=== PATIENT | female | born 1960 | race Caucasian/White ===

== ENCOUNTER 2018-01-06 20:45 | Outpatient (CLI) | payer MEDICARE | END 2018-01-06 20:46 | disposition critical access hospital (66) | LOC: EMS 20:45 | PROVIDERS: ATTEND Surgery | DX: R41.0 Disorientation, unspecified (principal); R56.9 Unspecified convulsions | CPT/HCPCS: A0425; A0427 ==

== ENCOUNTER 2018-01-06 21:15 | Observation (INO) | payer MEDICARE ==
--- NOTE | 2018-01-06 21:54 | CT Report ---
EXAM: CT HEAD EXAM DATE: 01/06/2018 09:46 PM. CLINICAL HISTORY: Syncope, seizure. COMPARISON: None. TECHNIQUE: Multiaxial CT images were obtained from the foramen magnum to the vertex. Reformats: Coron al. IV contrast: None. In accordance with CT protocol optimization, one or more of the following dose reduction techniques w ere utilized for this exam: automated exposure control, adjustment of mA and/or KV based on patient s ize, or use of iterative reconstructive technique. FINDINGS: Parenchyma: No intraparenchymal hemorrhage. No evidence of mass, midline shift, or CT findings of inf arction. Reinoso-white differentiation is distinct. Extraaxial Spaces: Normal for age. No subdural or epidural collections identified. Ventricles: Normal in size and position. Sinuses and Orbits: Imaged paranasal sinuses, orbits, and mastoids show no significant abnormality. Bones: No evidence of fracture or calvarial defect. Other: No hyperdense MCA. IMPRESSION: Normal head CT. [facility] The call report notification system was initiated by Dr. Lonnie Gutierrez at 21:51 hrs on 01/06/18. The above findings were discussed with Lonnie Tabares by Dr. Lonnie Gutierrez at 21:53 hrs on 01/06/18 . Referring Provider Line: [phone] SITE ID: [id number]
[2018-01-06 22:11] LABS: BASOPHILS % (AUTO) 0.8 %; EOSINOPHILS # (AUTO) 0.1 10^3/uL (0.0-0.7); EOSINOPHILS % (AUTO) 1.1 %; HGB - HEMOGLOBIN 10.7 g/dL (12.0-16.0); LYMPHOCYTES # (AUTO) 1.3 10^3/uL (1.5-3.5); LYMPHOCYTES % (AUTO) 24.4 %; MEAN CORPUSCULAR HEMOGLOBIN 34.7 pg (27.0-31.0); MEAN PLATELET VOLUME 7.3 fL (7.9-10.8); MONOCYTES # (AUTO) 0.4 10^3/uL (0.0-1.0); MONOCYTES % (AUTO) 7.9 %; NEUTROPHILS # (AUTO) 3.4 10^3/uL (1.5-6.6); NEUTROPHILS % (AUTO) 65.8 %; PLT - PLATELET COUNT 161 10^3/uL (130-450); RED BLOOD COUNT 3.08 10^6/uL (4.20-5.40); RED CELL DISTRIBUTION WIDTH 14.1 % (12.0-15.0); WHITE BLOOD COUNT 5.2 x10^3/uL (4.8-10.8)
[2018-01-06 22:16] LABS: INR 1.2 (0.8-1.2); PT - PROTHROMBIN TIME 13.6 secs (9.9-12.6)
[2018-01-06 22:36] LABS: ALBUMIN/GLOBULIN RATIO 1.3 (1.0-2.2); ALKALINE PHOSPHATASE 41 IU/L (42-121); ALT ALANINE AMINOTRANSFERASE 26 IU/L (10-60); AST ASPARTATE AMINOTRANSFERASE 44 IU/L (10-42); BILIRUBIN,TOTAL 1.6 mg/dL (0.2-1.0); BUN - BLOOD UREA NITROGEN 34 mg/dL (6-20); CALCIUM 7.7 mg/dL (8.5-10.3); CARBON DIOXIDE - CO2 25 mmol/L (21-32); CHLORIDE 94 mmol/L (101-111); CREATININE 0.8 mg/dL (0.4-1.0); GFR - MDRD 74 (>89); GLUCOSE 144 mg/dL (70-100); LIPASE 28 U/L (22-51); PHOSPHORUS 4.4 mg/dL (2.5-4.6); SODIUM 135 mmol/L (135-145)
[2018-01-06] MEDS ORDERED: MAGNESIUM SULFATE 2 GRAM 2 GM/50 ML BAG IV ONE ×2 (22:37→22:56)
[2018-01-06] MEDS ORDERED: POTASSIUM BICARB 25 MEQ TABLET PO STA (22:37)
[2018-01-06] MEDS ORDERED: POTASSIUM CHLOR 10 MEQ/100 ML 10 MEQ/100 ML BAG IV ONE (22:37)
[2018-01-06 22:38] LABS: MAGNESIUM 0.8 mg/dL (1.7-2.8)
--- NOTE | 2018-01-06 22:44 | ED Physician Documentation ---
PD HPI SEIZURE - Stated complaint Stated Complaint: AMS, SEIZURE - Chief complaint Chief Complaint: Neuro - History obtained from History obtained from: Patient, EMS - History of Present Illness Timing - onset: Today Witnessed: Witnessed Number of seizures: Multiple Description of seizure activity: Generalized Injury during seizure: None Contributing factors: EtOH withdrawal Similar symptoms before: Has not had sx before Recently seen: Not recently seen - Additional information Additional information: Patient is a 57 year old female with a history of breast cancer and etoh abuse who is presenting to the emergency department for seizure. According to ems patient called out to her because she wasn't feeling well. Patient proceeded to have a seizure witnessed by the who then called ems. While ems was bringing the patient to the emergency department patient had another seizure that was treated with diazapam. Upon initial evaluation in the emergency department patient was awake, alert and in no distress. Review of Systems Constitutional: denies: Fever, Chills Throat: denies: Dental pain / toothache, Oral lesions / sores Cardiac: denies: Chest pain / pressure GI: denies: Nausea, Vomiting Skin: denies: Rash, Lesions Musculoskeletal: denies: Neck pain Neurologic: reports: Seizure. denies: Generalized weakness, Headache Immunocompromised: denies: Immunocompromised PD PAST MEDICAL HISTORY - Past Medical History Past Medical History: Yes Cardiovascular: None Respiratory: None Neuro: None Endocrine/Autoimmune: None GI: None UPPER MARKER: Breast cancer : None HEENT: None Psych: None Musculoskeletal: None Derm: None - Past Surgical History Past Surgical History: Yes /UPPER MARKER: Hysterectomy, Other - Present Medications Home Medications: Ambulatory Orders Medication Instructions Recorded Confirmed Ibuprofen [Advil] 200 mg PO PRN PRN 10/11/13 10/11/13 - Allergies Allergies/Adverse Reactions: Allergies Allergy/AdvReac Type Severity Reaction Status Date / Time cephalexin monohydrate * Allergy Rash Verified 01/06/18 22:47 [From Keflex] - Social History Does the pt smoke?: Yes Smoking Status: Current every day smoker Does the pt drink ETOH?: Yes Does the pt have substance abuse?: No - Immunizations Immunizations are current?: Yes - POLST Patient has POLST: No PD ED PE NORMAL - Vitals Vital signs reviewed: Yes - General General: Alert and oriented X 3, No acute distress - HEENT HEENT: Atraumatic, PERRL - Neck Neck: Supple, no meningeal sign - Cardiac Cardiac: RRR - Respiratory Respiratory: No respiratory distress - Abdomen Abdomen: Soft - Derm Derm: Normal color - Extremities Extremities: No deformity - Neuro Neuro: Alert and oriented X 3, 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, No motor deficit, No sensory deficit, Normal speech Eye Opening: Spontaneous Motor: Obeys Commands Verbal: Oriented GCS Score: 15 Results - Vitals Vitals: Vital Signs - 24 hr 01/06/18 01/06/18 21:20 22:14 Temperature 36.9 C Heart Rate 106 H 88 Respiratory 20 16 Rate Blood Pressure 165/116 H 132/82 H O2 Saturation 95 98 Oxygen O2 Source Room air - EKG (time done) 2144 Rate: Rate (enter#) (92) Rhythm: NSR [place]: Normal Intervals: Prolonged QT QRS: Normal Ischemia: Q waves Compare to prior EKG: Old EKG unavailable - Labs Labs: Laboratory Tests 01/06/18 01/06/18 01/06/18 21:56 21:56 21:56 WBC 5.2 RBC 3.08 L Hgb 10.7 L Hct 30.4 L MCV 99.0 MCH 34.7 H MCHC 35.0 RDW 14.1 Plt Count 161 MPV 7.3 L Neut # 3.4 Lymph # 1.3 L [place] # 0.4 Eos # 0.1 Baso # 0.0 Absolute Nucleated RBC 0.00 Nucleated RBC % 0.0 PT 13.6 H INR 1.2 APTT 25.6 Sodium 135 Potassium 2.2 L* Chloride 94 L Carbon Dioxide 25 Anion Gap 16.0 H BUN 34 H Creatinine 0.8 Estimated GFR (MDRD) 74 L Glucose 144 H Calcium 7.7 L Phosphorus 4.4 Magnesium 0.8 L* Total Bilirubin 1.6 H AST 44 H ALT 26 Alkaline Phosphatase 41 L Troponin I Total Protein 7.0 Albumin 4.0 Globulin 3.0 Albumin/Globulin Ratio 1.3 Lipase 28 Ethyl Alcohol < 5.0 01/06/18 21:56 WBC RBC Hgb Hct MCV MCH MCHC RDW Plt Count MPV Neut # Lymph # [place] # Eos # Baso # Absolute Nucleated RBC Nucleated RBC % PT INR APTT Sodium Potassium Chloride Carbon Dioxide Anion Gap BUN Creatinine Estimated GFR (MDRD) Glucose Calcium Phosphorus Magnesium Total Bilirubin AST ALT Alkaline Phosphatase Troponin I 0.05 Total Protein Albumin Globulin Albumin/Globulin Ratio Lipase Ethyl Alcohol - Rads (name of study) ct head Radiology: Final report received (normal) PD MEDICAL DECISION MAKING - ED course Complexity details: reviewed old records, reviewed results, re-evaluated patient , considered differential, d/w patient ED course: patient was seen and examined at bedside. IV access was gained and labs were drawn. patient was sent for imaging as the patient was called in as possible stroke but the patient seemed to be more of withdrawal seizures. ekg was performed and was normal sinus but prolonged qt. Patient was awake, alert and oriented and denied any complaints. Patient had no focal neurological deficits. When patient's labs came back patient was found to have hypokalemia and low magnesium. both magnesium and potassium were ordered. Hospitalist was contacted and the case was discussed with him. Patient was placed in observation for further evaluation and care. Departure - Departure Disposition: ED Place in Observation Clinical Impression: Seizure, Hypokalemia Condition: Stable Discharge Date/Time: 01/07/18 00:10
[2018-01-06] MEDS ORDERED: ACETAMINOPHEN 325 MG TABLET PO PRN (22:56)
[2018-01-06] MEDS ORDERED: POTASSIUM CHLORIDE 20 MEQ TABLET PO ONE (22:56)
[2018-01-06] MEDS ORDERED: PROMETHAZINE 25 MG/1 ML VIAL IM PRN (22:56)
[2018-01-06] MEDS ORDERED: LORazepam 0.5 MG TABLET PO PRN (22:56)
[2018-01-06] MEDS ORDERED: ONDANSETRON 4 MG/2 ML VIAL IVP PRN (22:56)
[2018-01-06] MEDS ORDERED: PROCHLORPERAZINE 10 MG/2 ML VIAL IVP PRN (22:56)
[2018-01-06] MEDS ORDERED: IBUPROFEN 400 MG TABLET PO PRN (22:56)
[2018-01-06] MEDS ORDERED: SODIUM CHLORIDE FLUSH 0.9% 10 ML SYRINGE IVP PRN (22:56)
[2018-01-06] MEDS ORDERED: ZOLPIDEM 5 MG TABLET PO PRN (22:56)
[2018-01-06] MEDS ORDERED: oxyCODONE 5 MG TABLET PO PRN (22:56)
--- NOTE | 2018-01-06 23:07 | HISTORY & PHYSICAL EXAMINATION ---
Chief Complaint - Chief Complaint Chief Complaint: Seizures History of Present Illness - Admitted From Admitted From:: Emergency department - History Obtained From Records Reviewed: Yes History obtained from: Patient Exam Limitations: None - History of Present Illness HPI Comment/Other: Patient is a 57-year-old female with a past medical history significant for stage III breast cancer status post meniscectomy and lymph node resection along with adjuvant chemotherapy, chest wall radiation and tamoxifen therapy, hypertension, asthma and alcohol abuse who presents to the emergency department with seizures. The patient states the last thing she remembers is walking her dog this morning she does not recall any of the events of the day nor does she remember if her boyfriend was home with her at any point during the day. She states the only thing she remembers is waking up in the emergency department and she states that since she is woken up she feels fatigued and tired but otherwise does not feel anything abnormal. Unfortunately the patient does not recall any of the events of the day and therefore is not able to provide any history of what happened. The history of the events is provided from the medical records and EMS report. Per EMS the patient herself called 911 after she had noticed that she had a sudden onset of slurred speech and was not making sense. In route to the hospital the patient had 2 witnessed seizures lasting about 30 seconds each in the ambulance. She received 5 mg of Valium with which the seizures aborted. The patient stated she had no history of seizures and per report the patient had right upward gaze when she was having the seizure activity. According to the patient she has not had a alcoholic drink for 3 days now. She denies having had any previous episodes of alcohol withdrawal however she does state that in 2009 she was hospitalized because she states she drank too much and felt funny so decided to come to the hospital. She states that she was admitted to the hospital for several days at that time. The patient denies being a heavy drinker but does state that she does tend to binge drink. She states that she will have maybe a couple of margaritas or maybe a couple of bloody Lucia's or a few drinks with her girlfriends or a few drinks at home. She could not substantiate exactly how much she drinks and how often she drinks but stated she goes long periods of time without needing to drink. The patient also states that she eats very little. She states that she just eats chicken soup at the most once a day. She states that she does make sure to have Ensure for breakfast. The patient denies feeling abnormal at all over the last couple of days. She denies any headaches, focal neurologic deficits, chest pain, urinary urgency, urinary frequency or dysuria. The patient denies having had any fevers or chills. She denies having a stiff neck. The patient denies any recent sick contacts. Patient denies any blurred vision, runny nose, sore throat, nasal congestion, difficulty swallowing, shortness of air, orthopnea, cough, PND, increased lower extremity swelling, abdominal pain, nausea, vomiting, diarrhea, constipation, joint pain, muscle aches, back pain, neck stiffness, skin rashes, hair loss, recent unintentional weight loss or any changes in her appetite. On presentation to the emergency department the patient was afebrile, initially she was tachycardic and hypertensive but the patient's vital signs stabilized during her stay in the emergency department. The patient was fully alert and awake but could not recall the events of the day. She was conversing well and had no focal neurologic deficits. The patient's lab work was significant for a hemoglobin of 10.7, potassium of 2.2, magnesium of 0.8, glucose of 144 and elevated LFTs. The patient's urinalysis was negative and her U tox was positive for opiates and her blood alcohol level was negative. The patient did undergo a CT scan of her head which was normal. Given the patient's severe electrolyte derangements, her history of drinking alcohol and her lack of any infection or previous history of epilepsy the patient was thought most likely to have had an alcohol withdrawal seizure. The patient was placed in observation for electrolyte replacement as she had critically low values of potassium and magnesium. She will also get IV fluids, thiamine, multivitamin and folic acid. History - Past Medical History Cardiovascular: reports: Hypertension Respiratory: reports: Asthma Neuro: reports: None Endocrine/Autoimmune: reports: None GI: reports: None E MARKETING SPECIALIST: reports: Breast cancer (Stage III right breast cancer diagnosed in 02/07. ER/UT positive, HER-2 negative. Status post mastectomy and lymph node dissection. Adjuvant chemotherapy with dose dense ACT. Chest wall radiation therapy and endocrine therapy 6.5 years) : reports: None HEENT: reports: None Psych: reports: None Musculoskeletal: reports: None Derm: reports: None MRSA Hx?: No - Past Surgical History /E MARKETING SPECIALIST: reports: Hysterectomy, Other - Family & Social History Family History: Mother: , Alzheimer's Disease, Father: , CAD ( Paternal grandmother and grandfather both had coronary disease), Other family: CAD Living arrangement: At home Living Situation: With spouse/s.o. Social History Notes: The patient lives in [place], [place] with her boyfriend. She is originally from [place], [place]. She moved to [facility] 9 years ago. 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 The patient has never been and has no children. She does drink alcohol but states she goes days without alcohol and has never had alcohol withdrawal. She states that her last drink was 3 days ago. She states that her drink of choice is vodka. She states that even when she binges she only has a few cocktails during the day or the evening. She could not really quantify how often or how much she truly drinks. She smokes half a pack a day and has been doing so since the age of 16. She denies any illicit drug use. - Substance History Use: Uses substance without health or social issues: Tobacco Dependence: Experiences withdrawal or developed tolerances: Alcohol - POLST Patient has POLST: No POLST Status: Full Code Meds/Allgy - Home Medications Home Medications: Ambulatory Orders Medication Instructions Recorded Confirmed Ibuprofen [Advil] 200 mg PO PRN PRN 10/11/13 10/11/13 - Allergies Allergies/Adverse Reactions: Allergies Allergy/AdvReac Type Severity Reaction Status Date / Time cephalexin monohydrate * Allergy Rash Verified 01/06/18 22:47 [From Keflex] Review of Systems - Other Findings Other Findings: A comprehensive review of systems was performed the pertinent positives and negatives are stated above in the HPI and the remainder of the review of systems is negative. Exam - Vital Signs Reviewed Vital Signs: Yes Vital Signs: Vital Signs x48h Temp Pulse Resp BP Pulse Ox 01/06/18 22:58 91 18 124/83 H 99 01/06/18 22:14 88 16 132/82 H 98 01/06/18 21:20 36.9 C 106 H 20 165/116 H 95 - Physical Exam General Appearance: positive: No acute distress, Alert Eyes Bilateral: positive: Normal inspection, PERRL, EOMI, No lid inflammation, Conjunctivae nml, No scleral icterus ENT: positive: ENT inspection nml, Pharynx nml, Dry mucous membranes. negative : Purulent nasal drainage, Pharyngeal erythema, Oral lesions Neck: positive: Nml inspection, Thyroid nml, No JVD, Trachea midline. negative : Thyromegaly, Lymphadenopathy (R), Lymphadenopathy (L), Stiff neck, Carotid bruit, Tracheal deviation Respiratory: positive: Chest non-tender, No respiratory distress, Breath sounds nml. negative: Wheezes, Rales, Rhonchi Cardiovascular: positive: Regular rate & rhythm, No murmur, No gallop Peripheral Pulses: positive: 2+ Abdomen: positive: Non-tender, No organomegaly, Nml bowel sounds, No distention. negative: Guarding, Rebound, Hepatomegaly Back: positive: Nml inspection. negative: CVA tenderness (R), CVA tenderness (L ) Skin: positive: Color nml, No rash, Warm. negative: Cyanosis, Diaphoresis, Pallor Extremities: positive: Non-tender, Full ROM, Nml appearance, No pedal edema Neurologic/Psychiatric: positive: Oriented x3, CN's nml (2-12), Motor nml, Sensation nml, Mood/affect nml Conclusion/Plan - Problem List (1) Seizure Conclusion/Plan: Patient had 2 witnessed seizures by EMS in route to the hospital. Prior to that it is unclear if she had seizures at home but apparently called EMS because she was having difficulty with her speech. The patient does not recall anything that happened at home and no one was home to witness what had happened. It is possible that the patient also had a seizure at home and was in a postictal state when she called 911. The patient's CT head on arrival was negative. She had no focal neurologic deficits. She had no further seizures in the emergency department. She did not appear to be in florid alcohol withdrawal. However given her history of drinking and the fact her last drink was 3 days ago it was presumed that most likely the patient had alcohol withdrawal seizures. Especially when looking at her electrolyte derangements. The patient's seizure activity could also have been secondary to her severe hypomagnesemia. Plan: Patient will not be started on any antiepileptic since this is her first seizure We will monitor the patient in observation and give her Ativan in case she has any further seizure activity We will monitor for possible alcohol withdrawal. Replace electrolytes especially magnesium (2) Alcohol withdrawal Conclusion/Plan: On presentation the patient does not appear to be an active alcohol withdrawal however the likely cause of her seizure activity is alcohol withdrawal. The patient appears to be a heavy drinker although she does not seem to think so. Her last drink was 3 days ago. Looking at her electrolyte derangements in the absence of diarrhea and severe starvation her electrolytes are in line with somebody who would be an alcoholic. Plan: Patient will be placed on [facility] protocol for alcohol withdrawal Patient will be given Ativan as needed for alcohol withdrawal Patient will be given a banana bag with IV multivitamin, IV thiamine, IV folate We will observe patient overnight to see if she goes into worsening withdrawal Qualifiers: Complication of substance-induced condition: with unspecified complication Qualified Code(s): F10.239 - Alcohol dependence with withdrawal, unspecified (3) Hypomagnesemia Conclusion/Plan: Patient had severe hypomagnesemia on presentation with a magnesium of just 0.8. The presumed cause of this is poor nutrition and alcohol abuse. The patient states that she does not eat very much and does admit to drinking alcohol but does not believe she is an alcoholic. The patient denies any diarrhea or vomiting. The patient did present with seizures and it is possible that the seizures could be secondary to the hypomagnesemia. Plan: Patient will be given IV magnesium as well as p.o. magnesium We will monitor magnesium Patient will undergo neuro checks and observation overnight. (4) Hypokalemia Conclusion/Plan: On presentation the patient has severe hypokalemia again this is thought likely to be secondary to poor nutritional intake and alcohol abuse. The patient does admit to some muscle weakness which is likely secondary to her hypokalemia. The patient's seizure activity is unlikely to be related to the hypokalemia. The patient's EKG does not show any changes that would be consistent with hypokalemia. Plan: Patient will receive IV and p.o. potassium replacement We will monitor potassium Patient will be placed on telemetry monitoring until potassium levels improved. (5) Elevated LFTs Conclusion/Plan: The patient has elevated LFTs with a bilirubin of 1.6, AST of 44 and ALT of 26. These appear to be consistent with alcoholic transaminitis. We will monitor LFTs We advised the patient to stop drinking (6) Hyperglycemia Conclusion/Plan: The patient's blood glucose is elevated at 144 on presentation. The patient denies any history of diabetes or uncontrolled blood glucose in the past. Blood glucose may have been elevated in the acute phase after a seizure. Plan: Monitor blood glucose Hemoglobin A1c (7) Anemia Conclusion/Plan: On presentation the patient's hemoglobin is 10.7 her baseline hemoglobin was 14 in 2015. The patient's MCV is high normal. Given the presumed alcohol abuse we are suspicious for possible B12 or folate deficiency anemia. Plan: We will check patient's iron studies, ferritin, B12 and folate levels Monitor hemoglobin Qualifiers: Anemia type: unspecified type Qualified Code(s): D64.9 - Anemia, unspecified (8) Tobacco abuse Conclusion/Plan: Patient was counseled on the need to quit smoking especially with her history of cancer. The patient will also be offered a nicotine patch while she is hospitalized. - Lab Results Lab results reviewed: Yes Fish Bones: 01/06/18 21:56 01/06/18 21:56 Other Lab Results: Laboratory Results WBC 5.2 x10^3/uL (4.8-10.8) 01/06/18 21:56 RBC 3.08 10^6/uL (4.20-5.40) L 01/06/18 21:56 Hgb 10.7 g/dL (12.0-16.0) L 01/06/18 21:56 Hct 30.4 % (37.0-47.0) L 01/06/18 21:56 MCV 99.0 fL (81.0-99.0) 01/06/18 21:56 MCH 34.7 pg (27.0-31.0) H 01/06/18 21:56 MCHC 35.0 g/dL (32.0-36.0) 01/06/18 21:56 RDW 14.1 % (12.0-15.0) 01/06/18 21:56 Plt Count 161 10^3/uL (130-450) 01/06/18 21:56 MPV 7.3 fL (7.9-10.8) L 01/06/18 21:56 Neut # 3.4 10^3/uL (1.5-6.6) 01/06/18 21:56 Lymph # 1.3 10^3/uL (1.5-3.5) L 01/06/18 21:56 [place] # 0.4 10^3/uL (0.0-1.0) 01/06/18 21:56 Eos # 0.1 10^3/uL (0.0-0.7) 01/06/18 21:56 Baso # 0.0 10^3/uL (0.0-0.1) 01/06/18 21:56 Absolute Nucleated RBC 0.00 x10^3/uL 01/06/18 21:56 Nucleated RBC % 0.0 /100WBC 01/06/18 21:56 PT 13.6 secs (9.9-12.6) H 01/06/18 21:56 INR 1.2 (0.8-1.2) 01/06/18 21:56 APTT 25.6 secs (24.9-33.3) 01/06/18 21:56 Sodium 135 mmol/L (135-145) 01/06/18 21:56 Potassium 2.2 mmol/L (3.5-5.0) L* 01/06/18 21:56 Chloride 94 mmol/L (101-111) L 01/06/18 21:56 Carbon Dioxide 25 mmol/L (21-32) 01/06/18 21:56 Anion Gap 16.0 (6-13) H 01/06/18 21:56 BUN 34 mg/dL (6-20) H 01/06/18 21:56 Creatinine 0.8 mg/dL (0.4-1.0) 01/06/18 21:56 Estimated GFR (MDRD) 74 (>89) L 01/06/18 21:56 Glucose 144 mg/dL (70-100) H 01/06/18 21:56 Calcium 7.7 mg/dL (8.5-10.3) L 01/06/18 21:56 Phosphorus 4.4 mg/dL (2.5-4.6) 01/06/18 21:56 Magnesium 0.8 mg/dL (1.7-2.8) L* 01/06/18 21:56 Total Bilirubin 1.6 mg/dL (0.2-1.0) H 01/06/18 21:56 AST 44 IU/L (10-42) H 01/06/18 21:56 ALT 26 IU/L (10-60) 01/06/18 21:56 Alkaline Phosphatase 41 IU/L (42-121) L 01/06/18 21:56 Troponin I 0.05 ng/mL (<0.49) 01/06/18 21:56 Total Protein 7.0 g/dL (6.7-8.2) 01/06/18 21:56 Albumin 4.0 g/dL (3.2-5.5) 01/06/18 21:56 Globulin 3.0 g/dL (2.1-4.2) 01/06/18 21:56 Albumin/Globulin Ratio 1.3 (1.0-2.2) 01/06/18 21:56 Lipase 28 U/L (22-51) 01/06/18 21:56 Ethyl Alcohol < 5.0 mg/dL 01/06/18 21:56 - Diagnostic Imaging Results Diagnostic Imaging Results: positive: Final report reviewed Diagnostic Imaging Results Comments: CT head Impression: Normal CT head - EKG Results EKG Interpreted Independently: Yes EKG Findings: T-wave inversions in leads V1 through V3. Sinus rhythm no ST elevations or acute ischemic changes noted. Core Measures - Anticipated LOS I expect patient to be DC'd or transferred within 96 hours.: Yes - DVT/VTE - Prophylaxis VTE/DVT Prophylaxis med ordered at admit?: Yes
[2018-01-06 23:13] LABS: MUDS CUTOFF CONCENTRATIONS CUTOFF CONC BELOW:
[2018-01-06 23:16] LABS: BILIRUBIN,URINE NEGATIVE (NEGATIVE); GLUCOSE, URINE (UA) NEGATIVE (NEGATIVE); KETONES,URINE (UA) 15 mg/dL (NEGATIVE); LEUKOCYTE ESTERASE, URINE NEGATIVE (NEGATIVE); NITRITE,URINE NEGATIVE (NEGATIVE); OCCULT BLOOD,URINE SMALL (NEGATIVE); PROTEIN,URINE NEGATIVE (NEGATIVE); UROBILINOGEN,URINE 0.2 (NORMAL) E.U./dL (NORMAL)
[2018-01-06 23:40] LABS: CLARITY,URINE CLEAR (CLEAR)
[2018-01-06 23:41] LABS: BACTERIA,URINE None Seen /HPF (None Seen); RBC,URINE 0-5 /HPF (0-5); SQUAMOUS EPITHELIAL CELL,UR RARE Squamous (<= Few)
[2018-01-06 23:43] LABS: AMPHETAMINE SCREEN,URINE NEGATIVE (NEGATIVE); BENZODIAZEPINES SCREEN, URINE NEGATIVE (NEGATIVE); COCAINE SCREEN URINE NEGATIVE (NEGATIVE); METHADONE SCREEN, URINE NEGATIVE (NEGATIVE); METHAMPHETAMINES SCREEN, URINE NEGATIVE (NEGATIVE); OPIATE SCREEN, URINE POSITIVE (NEGATIVE); OXYCODONE SCREEN, URINE NEGATIVE (NEGATIVE); PROPOXYPHENE SCREEN, URINE NEGATIVE (NEGATIVE); TRICYCLIC ANTIDEPRESSANT,URINE NEGATIVE (NEGATIVE)
[2018-01-06] MEDS ORDERED: SODIUM CHLORIDE 0.9% 1,000 ML IV ONE (23:52)
[2018-01-07] MEDS: SODIUM CHLORIDE FLUSH 0.9% 10 ML SYRINGE IVP SCH ×2 (00:52→08:40)
[2018-01-07] MEDS: POTASSIUM CHLOR 10 MEQ/100 ML 10 MEQ/100 ML BAG IV SCH ×5 (00:53→06:26)
[2018-01-07 05:18] LABS: BASOPHILS % (AUTO) 0.3 %; EOSINOPHILS # (AUTO) 0.1 10^3/uL (0.0-0.7); EOSINOPHILS % (AUTO) 0.9 %; HGB - HEMOGLOBIN 11.6 g/dL (12.0-16.0); LYMPHOCYTES # (AUTO) 2.2 10^3/uL (1.5-3.5); LYMPHOCYTES % (AUTO) 23.8 %; MEAN CORPUSCULAR HEMOGLOBIN 34.7 pg (27.0-31.0); MEAN CORPUSCULAR HGB CONC 34.1 g/dL (32.0-36.0); MEAN CORPUSCULAR VOLUME 101.7 fL (81.0-99.0); MEAN PLATELET VOLUME 7.6 fL (7.9-10.8); MONOCYTES # (AUTO) 0.6 10^3/uL (0.0-1.0); MONOCYTES % (AUTO) 6.5 %; NEUTROPHILS # (AUTO) 6.5 10^3/uL (1.5-6.6); NEUTROPHILS % (AUTO) 68.5 %; PLT - PLATELET COUNT 192 10^3/uL (130-450); RED BLOOD COUNT 3.35 10^6/uL (4.20-5.40); RED CELL DISTRIBUTION WIDTH 14.3 % (12.0-15.0); WHITE BLOOD COUNT 9.5 x10^3/uL (4.8-10.8)
[2018-01-07 05:29] LABS: ALBUMIN 4.1 g/dL (3.2-5.5); ALBUMIN/GLOBULIN RATIO 1.3 (1.0-2.2); BILIRUBIN,TOTAL 1.7 mg/dL (0.2-1.0); CALCIUM 8.1 mg/dL (8.5-10.3); CREATININE 0.7 mg/dL (0.4-1.0); MAGNESIUM 2.3 mg/dL (1.7-2.8); PHOSPHORUS 3.3 mg/dL (2.5-4.6); TOTAL PROTEIN 7.3 g/dL (6.7-8.2)
[2018-01-07 05:51] LABS: HB2 TOTAL 12.3 g/dL; HEMOGLOBIN A1C 0.31 g/dL; HEMOGLOBIN A1C % 4.5 % (4.6-6.2)
[2018-01-07] MEDS ORDERED: POTASSIUM CHLORIDE 20 MEQ TABLET PO SCH (08:00)
[2018-01-07] MEDS ORDERED: MAGNESIUM OXIDE 400 MG TABLET PO SCH (08:00)
[2018-01-07 08:06] LABS: % IRON SATURATION 18 % (20-50); IRON 51 ug/dL (28-170); TOTAL IRON BINDING CAPACITY 281 ug/dL (250-450); TRANSFERRIN 201 mg/dL (192-382)
[2018-01-07] MEDS ORDERED: THIAMINE 100 MG/1 ML 2 ML MDV ONE (08:19)
[2018-01-07] MEDS ORDERED: FAMOTIDINE 20 MG TABLET PO SCH (09:00)
[2018-01-07] MEDS ORDERED: MULTIVITAMIN 10 ML in SODIUM CHLORIDE 0.9% 1,000 ML IV SCH (09:00)
[2018-01-07] MEDS ORDERED: POLYETHYLENE GLYCOL 3350 17 GM PACKET PO SCH (09:00)
[2018-01-07] MEDS ORDERED: THIAMINE INJ 100 MG, FOLIC ACID INJ 1 MG in SODIUM CHLORIDE 0.9% 100ML 100 ML IV SCH (09:00)
[2018-01-07] MEDS ORDERED: ENOXAPARIN 40 MG/0.4 ML SYRINGE SUBQ SCH (09:00)
[2018-01-07 11:35] VITALS: BP 110/69
--- NOTE | 2018-01-07 11:58 | Discharge Plan ---
Discharge Plan Disposition: Home, Self Care Condition: Poor Prescriptions: Levetiracetam [Keppra] 500 mg PO BID #30 tablet Diet: Regular Activity Restrictions: Activity as Tolerated Shower Restrictions: No (fall precaution) Weight Bearing: Full Weight Instruction Topics: Addiction Alcohol, ED Seizure Alcohol Withdrawal, Levetiracetam tablets Additional Instructions or Follow Up instructions: You may follow up your PCP in one week. I discussed with you about your alcohol issue. You are advised to quit your alcohol. Should your symptoms return or worsen, you may present ER or call 911 for help. No Smoking: If you smoke, Please STOP! Call for help. Follow-up with: Ani Miller ARNP [Primary Care Provider] -
--- NOTE | 2018-01-07 12:09 | DISCHARGE SUMMARY ---
Discharge Summary Discharge Date: 01/07/18 Discharging Provider: ALONSO Primary Care Provider: Ani Dorman Condition at Discharge: Poor Discharge Disposition: 01 Home, Self Care Discharge Facility Name: home - DIAGNOSES Admission Diagnoses: (1) Seizure (2) Alcohol withdrawal (3) Hypomagnesemia (4) Hypokalemia (5) Elevated LFTs (6) Hyperglycemia (7) Anemia (8) Tobacco abuse Discharge Diagnoses with Status of Each Condition: (1) Seizure no seizure at hospital. Pt is prescribed keppra for two weeks for prevention of seizure. Pt is encourage to follow up PCP to manage seizure from alcohol withdrawal (2) Alcohol withdrawal discuss pt for alcohol withdrawal, encourage pt to follow up PCP to manage the alcohol withdrawal (3) Hypomagnesemia resolved (4) Hypokalemia resolved (5) Elevated LFTs resolved (6) Hyperglycemia resolved (7) Anemia stable and better (8) Tobacco abuse discuss and encourage quit smoking. - HPI History of Present Illness: refer from Dr. Kohler's HPI for pt as the following: Patient is a 57-year-old female with a past medical history significant for stage III breast cancer status post meniscectomy and lymph node resection along with adjuvant chemotherapy, chest wall radiation and tamoxifen therapy, hypertension, asthma and alcohol abuse who presents to the emergency department with seizures. The patient states the last thing she remembers is walking her dog this morning she does not recall any of the events of the day nor does she remember if her boyfriend was home with her at any point during the day. She states the only thing she remembers is waking up in the emergency department and she states that since she is woken up she feels fatigued and tired but otherwise does not feel anything abnormal. Unfortunately the patient does not recall any of the events of the day and therefore is not able to provide any history of what happened. The history of the events is provided from the medical records and EMS report. Per EMS the patient herself called 911 after she had noticed that she had a sudden onset of slurred speech and was not making sense. In route to the hospital the patient had 2 witnessed seizures lasting about 30 seconds each in the ambulance. She received 5 mg of Valium with which the seizures aborted. The patient stated she had no history of seizures and per report the patient had right upward gaze when she was having the seizure activity. According to the patient she has not had a alcoholic drink for 3 days now. She denies having had any previous episodes of alcohol withdrawal however she does state that in 2009 she was hospitalized because she states she drank too much and felt funny so decided to come to the hospital. She states that she was admitted to the hospital for several days at that time. The patient denies being a heavy drinker but does state that she does tend to binge drink. She states that she will have maybe a couple of margaritas or maybe a couple of bloody Lucia's or a few drinks with her girlfriends or a few drinks at home. She could not substantiate exactly how much she drinks and how often she drinks but stated she goes long periods of time without needing to drink. The patient also states that she eats very little. She states that she just eats chicken soup at the most once a day. She states that she does make sure to have Ensure for breakfast. The patient denies feeling abnormal at all over the last couple of days. She denies any headaches, focal neurologic deficits, chest pain, urinary urgency, urinary frequency or dysuria. The patient denies having had any fevers or chills. She denies having a stiff neck. The patient denies any recent sick contacts. Patient denies any blurred vision, runny nose, sore throat, nasal congestion, difficulty swallowing, shortness of air, orthopnea, cough, PND, increased lower extremity swelling, abdominal pain, nausea, vomiting, diarrhea, constipation, joint pain, muscle aches, back pain, neck stiffness, skin rashes, hair loss, recent unintentional weight loss or any changes in her appetite. On presentation to the emergency department the patient was afebrile, initially she was tachycardic and hypertensive but the patient's vital signs stabilized during her stay in the emergency department. The patient was fully alert and awake but could not recall the events of the day. She was conversing well and had no focal neurologic deficits. The patient's lab work was significant for a hemoglobin of 10.7, potassium of 2.2, magnesium of 0.8, glucose of 144 and elevated LFTs. The patient's urinalysis was negative and her U tox was positive for opiates and her blood alcohol level was negative. The patient did undergo a CT scan of her head which was normal. Given the patient's severe electrolyte derangements, her history of drinking alcohol and her lack of any infection or previous history of epilepsy the patient was thought most likely to have had an alcohol withdrawal seizure. The patient was placed in observation for electrolyte replacement as she had critically low values of potassium and magnesium. She will also get IV fluids, thiamine, multivitamin and folic acid. - ALLERGIES Allergies/Adverse Reactions: Allergies Allergy/AdvReac Type Severity Reaction Status Date / Time cephalexin monohydrate * Allergy Rash Verified 01/06/18 22:47 [From Keflex] - MEDICATIONS Home Medications: Ambulatory Orders Medication Instructions Recorded Confirmed Levetiracetam [Keppra] 500 mg PO BID #30 tablet 01/07/18 Multivitamin [Theragran] 1 tab PO DAILY 01/07/18 01/07/18 - PHYSICAL EXAM AT DISCHARGE General Appearance: positive: No acute distress, Alert. negative: Lethargic Eyes Bilateral: positive: Normal inspection, PERRL, No lid inflammation, Conjunctivae nml ENT: positive: ENT inspection nml, Pharynx nml, No signs of dehydration. negative: Purulent nasal drainage, Pharyngeal erythema, Oral lesions Neck: positive: Nml inspection, Thyroid nml, No JVD, Trachea midline. negative : Thyromegaly, Lymphadenopathy (R), Lymphadenopathy (L), Stiff neck, Carotid bruit, Swelling/bruising, Tracheal deviation Respiratory: positive: Chest non-tender, No respiratory distress, Breath sounds nml. negative: Wheezes, Rales, Rhonchi Cardiovascular: positive: Regular rate & rhythm, No murmur, No gallop. negative : Irregularly irregular, Extrasystoles, Tachycardia, Bradycardia, JVD present, Systolic murmur, Diastolic murmur Peripheral Pulses: positive: 2+ Abdomen: positive: Non-tender, No organomegaly, Nml bowel sounds, No distention. negative: Tenderness, Guarding, Rebound Back: positive: Nml inspection. negative: CVA tenderness (R), CVA tenderness (L ) Skin: positive: Color nml, No rash, Warm, Dry. negative: Cyanosis, Diaphoresis , Pallor Extremities: positive: Non-tender, Full ROM, Nml appearance. negative: Calf tenderness, Joint swelling, Sakshi's sign/cords Neurologic/Psychiatric: positive: Oriented x3, Motor nml, Sensation nml. negative: Sensory loss, Facial droop, Slurred/abnml speech, Depressed mood/ affect - LABS Result Diagrams: 01/07/18 04:45 01/07/18 04:45 - FOLLOW UP Follow Up: You may follow up your PCP in one week. I discussed with you about your alcohol issue. You are advised to quit your alcohol, and follow up your PCP to manage alcohol withdrawal. Should your symptoms return or worsen, you may present ER or call 911 for help. - TIME SPENT Time Spent in Discharge (Minutes): 45
== END 2018-01-07 14:31 | disposition home or self-care (01) ==
LOC: EDUNIT# → EDBD → ED 21:15 → MS3 22:56
PROVIDERS: ADMIT Internal Medicine; ATTEND Nurse Practitioner Gerontology
DX: F10.239 Alcohol dependence with withdrawal, unspecified (principal); R56.9 Unspecified convulsions; E83.42 Hypomagnesemia; E87.6 Hypokalemia; R73.9 Hyperglycemia, unspecified; R17 Unspecified jaundice; R74.8 Abnormal levels of other serum enzymes; D64.9 Anemia, unspecified; I10 Essential (primary) hypertension; F17.210 Nicotine dependence, cigarettes, uncomplicated; Y90.0 Blood alcohol level of less than 20 mg/100 ml; Z85.3 Personal history of malignant neoplasm of breast; Z92.21 Personal history of antineoplastic chemotherapy; Z92.3 Personal history of irradiation; Z90.11 Acquired absence of right breast and nipple
CPT/HCPCS: 36415; 70450; 80053; 80306; 81001; 82607; 82728; 82746; 83036; 83540; 83690; 83735; 84100; 84466; 84484; 85025; 85610; 85730; 93005; 96361; 96365; 96366; 96367; 96368; 96372; 96375; 99284; 99285; A9270; G0378; G0480; J1650; J3411; 80320; 81003; 87086

== ENCOUNTER 2018-04-28 12:04 | Outpatient (CLI) | payer MEDICARE ==
--- NOTE | 2018-04-28 14:05 | XRAY Report ---
Reason: THORACIC BACK BILAT HIP PAIN Procedure Date: 04/28/2018 Accession Number: [id number] / [id number] Procedure: XR - Hips 2V BILAT CPT Code: FULL RESULT: EXAM: BILATERAL HIP RADIOGRAPHY EXAM DATE: 04/28/2018 12:33 PM. CLINICAL HISTORY: THORACIC BACK BILAT HIP PAIN. COMPARISON: None. TECHNIQUE: 2 views each. FINDINGS: Bones: Normal. No fractures or bone lesion. Right Hip: Minimal degenerative changes. Left Hip: Normal. No dislocation. The hip joint space is preserved. Soft Tissues: Normal. No soft tissue swelling. IMPRESSION: Minimal degenerative changes in the right and left hip joints. RADIA
--- NOTE | 2018-04-28 14:26 | XRAY Report ---
Reason: THORACIC BACK BILAT HIP PAIN Procedure Date: 04/28/2018 Accession Number: [id number] / [id number] Procedure: XR - Thoracic Spine 2 View CPT Code: FULL RESULT: EXAM: THORACIC SPINE RADIOGRAPHY EXAM DATE: 04/28/2018 12:33 PM. CLINICAL HISTORY: THORACIC BACK BILAT HIP PAIN. COMPARISON: None. TECHNIQUE: 3 views. FINDINGS: Alignment: Normal. No spondylolisthesis or scoliosis. Bones: No fractures or bone lesions. Disks: Moderate degenerative disk disease at C5-C6 and C6-C7. Soft Tissues: Normal. The visualized lungs and cardiomediastinal silhouette are normal. IMPRESSION: 1. Moderate degenerative disk disease at C5-C6 and C6-C7. 2. No fracture or listhesis. RADIA
--- NOTE | 2018-04-29 10:25 | MRI Report ---
Reason: THORACIC BACK BILAT HIP PAIN Procedure Date: 04/28/2018 Accession Number: [id number] / [id number] Procedure: MRI - Brain W/O CPT Code: FULL RESULT: EXAM: MRI BRAIN WITHOUT CONTRAST EXAM DATE: 04/28/2018 01:30 PM. CLINICAL HISTORY: Possible seizure, history of right mastectomy for breast cancer, headache COMPARISON: Head CT 01/06/2018 TECHNIQUE: Multiplanar, multisequence T1-weighted and fluid-sensitive MR sequences of the brain were performed. Sequences optimized for routine evaluation. Other: None. IV Contrast: None. FINDINGS: Brain Volume: Normal for age. Parenchyma/Dura: No mass, acute infarct or hemorrhage. A few punctate foci of scattered prolonged T2 signal intensity are nonspecific finding Ventricles/Cisterns: No hydrocephalus. No abnormal extra-axial fluid collection or hemorrhage. Orbits: Symmetric and unremarkable. Sella Turcica: The pituitary gland, cavernous sinuses, suprasellar cistern and optic chiasm are unremarkable. IAC: Symmetric and unremarkable. Vasculature: Normal signal flow void is seen in the major arterial structures at the skull base. Sinuses: No acute appearing sinus disease. Small retention cyst left maxillary sinus. Bones: No focal pathologic appearing marrow signal changes. Other: No acute findings compared with the head CT of 01/06/2018. No definite evidence for metastatic disease. IMPRESSION: 1. Negative brain MRI without contrast for age. No findings of an acute intracranial process. RADIA
== END 2018-04-28 12:05 | disposition home or self-care (01) ==
LOC: DI 12:04
PROVIDERS: ATTEND Nurse Practitioner Family
DX: R56.9 Unspecified convulsions (principal); M16.0 Bilateral primary osteoarthritis of hip; M50.322 Other cervical disc degeneration at C5-C6 level
CPT/HCPCS: 70551; 72070; 73521

== ENCOUNTER 2018-04-28 12:41 | Outpatient (CLI) | payer MEDICARE ==
--- NOTE | 2018-04-30 12:37 | Mammography Report ---
Reason: SCREENING FOR BRS CA Procedure Date: 04/28/2018 Accession Number: [id number] / [id number] Procedure: PAKO - Screening Mammo Dig LT CPT Code: FULL RESULT: EXAM: Screening Mammo Dig LT DATE: 04/28/2018 2:23 PM CLINICAL HISTORY: Status post right mastectomy, radiation, and chemotherapy. TECHNIQUE: Unilateral left CC and MLO projection COMPARISON: 06/02/2015, 10/07/2013, 06/10/2012, 06/05/2012, and 06/13/2011 FINDINGS: The breast tissue is heterogeneously dense. Course typically benign calcifications as before. No suspicious new masses, clustered microcalcifications, architectural distortion or other new finding. IMPRESSION: Negative examination. Suggest routine left screening in 12 months. BI-RADS 1: Negative
== END 2018-04-28 12:42 | disposition home or self-care (01) ==
LOC: DI 12:41
PROVIDERS: ATTEND Nurse Practitioner Family
DX: Z12.31 Encounter for screening mammogram for malignant neoplasm of breast (principal); Z85.3 Personal history of malignant neoplasm of breast; Z90.11 Acquired absence of right breast and nipple

== ENCOUNTER 2019-06-25 10:38 | Outpatient (CLI) | payer MEDICARE | END 2019-06-25 10:39 | disposition critical access hospital (66) | LOC: EMS 10:38 | PROVIDERS: ATTEND Surgery | DX: R10.13 Epigastric pain (principal); R11.10 Vomiting, unspecified ==

== ENCOUNTER 2019-06-25 11:13 | Emergency (ER) | payer MEDICARE ==
[2019-06-25] MEDS ORDERED: SODIUM CHLORIDE 0.9% 1,000 ML IV STA (11:27)
[2019-06-25 11:47] LABS: BASOPHILS % (AUTO) 0.2 %; EOSINOPHILS # (AUTO) 0.1 10^3/uL (0.0-0.7); EOSINOPHILS % (AUTO) 0.9 %; HGB - HEMOGLOBIN 11.6 g/dL (12.0-16.0); LYMPHOCYTES # (AUTO) 1.1 10^3/uL (1.5-3.5); LYMPHOCYTES % (AUTO) 20.9 %; MEAN CORPUSCULAR HEMOGLOBIN 34.7 pg (27.0-31.0); MEAN CORPUSCULAR HGB CONC 35.5 g/dL (32.0-36.0); MEAN CORPUSCULAR VOLUME 97.9 fL (81.0-99.0); MEAN PLATELET VOLUME 9.9 fL (7.9-10.8); MONOCYTES # (AUTO) 0.9 10^3/uL (0.0-1.0); MONOCYTES % (AUTO) 17.1 %; NEUTROPHILS # (AUTO) 3.2 10^3/uL (1.5-6.6); NEUTROPHILS % (AUTO) 60.3 %; PLT - PLATELET COUNT 112 10^3/uL (130-450); RED BLOOD COUNT 3.34 10^6/uL (4.20-5.40); WHITE BLOOD COUNT 5.3 x10^3/uL (4.8-10.8)
--- NOTE | 2019-06-25 12:01 | ED Physician Documentation ---
PD HPI ABD PAIN - Stated complaint Stated Complaint: ABD PAIN - Chief complaint Chief Complaint: Abd Pain - Additional information Additional information: This is a 58-year-old female history of alcohol use, and breast cancer, presents with epigastric discomfort for 2 days. Patient states she has pain that starts in her epigastrium and radiates up towards her throat, is worse when she drinks liquids or eats foods. She has had nausea and she has vomited once. She describes the pain as burning and moderate in severity. She is a heavy alcohol user, uses daily. She denies any lower abdominal pain, or diarrhea, no fever, no difficulty breathing. Review of Systems Constitutional: denies: Fever Cardiac: denies: Chest pain / pressure Respiratory: denies: Dyspnea GI: reports: Nausea : denies: Dysuria Neurologic: denies: Generalized weakness PD PAST MEDICAL HISTORY - Past Medical History Past Medical History: Yes Cardiovascular: Hypertension Respiratory: Asthma Neuro: None Endocrine/Autoimmune: None GI: None OPHTHALMIC TECH: Breast cancer : None HEENT: None Psych: None Musculoskeletal: None Derm: None - Past Surgical History Past Surgical History: Yes /OPHTHALMIC TECH: Hysterectomy, Mastectomy - Present Medications Home Medications: Ambulatory Orders Medication Instructions Recorded Confirmed Levetiracetam [Keppra] 500 mg PO BID #30 tablet 01/07/18 Multivitamin [Theragran] 1 tab PO DAILY 01/07/18 01/07/18 Omeprazole 40 mg PO DAILY 14 Days #30 06/25/19 capsule. Ondansetron Odt [Zofran] 4 mg TL Q6H PRN #10 tablet 06/25/19 Ranitidine HCl [Acid Control] 150 mg PO BID 14 Days #28 tablet 06/25/19 Sucralfate 1 gm PO BID #28 tablet 06/25/19 - Allergies Allergies/Adverse Reactions: Allergies Allergy/AdvReac Type Severity Reaction Status Date / Time cephalexin monohydrate * Allergy Rash Verified 01/06/18 22:47 [From Keflex] - Social History Does the pt smoke?: Yes Smoking Status: Current every day smoker Does the pt drink ETOH?: Yes Does the pt have substance abuse?: No - Immunizations Immunizations are current?: Yes - POLST Patient has POLST: No POLST Status: Full Code PD ED PE NORMAL - Vitals Vital signs reviewed: Yes - General General: Alert and oriented X 3, No acute distress - HEENT HEENT: PERRL - Neck Neck: Supple, no meningeal sign - Cardiac Cardiac: RRR, No murmur - Respiratory Respiratory: No respiratory distress, Clear bilaterally - Abdomen Abdomen: Soft, Non tender, Non distended - Derm Derm: Warm and dry - Extremities Extremities: No deformity - Neuro Neuro: Alert and oriented X 3 - Psych Psych: Normal mood, Normal affect Results - Vitals Vitals: Oxygen O2 Source Room air - Labs Labs: Laboratory Tests 06/25/19 06/25/19 06/25/19 11:38 11:38 11:38 WBC 5.3 RBC 3.34 L Hgb 11.6 L Hct 32.7 L MCV 97.9 MCH 34.7 H MCHC 35.5 RDW 12.0 Plt Count 112 L MPV 9.9 Neut # (Auto) 3.2 Lymph # (Auto) 1.1 L Rains # (Auto) 0.9 Eos # (Auto) 0.1 Baso # (Auto) 0.0 Absolute Nucleated RBC 0.00 Nucleated RBC % 0.0 Sodium 134 L Potassium 2.1 L* Chloride 89 L Carbon Dioxide 30 Anion Gap 15.0 H BUN 28 H Creatinine 0.7 Estimated GFR (MDRD) 87 L Glucose 114 H Calcium 8.6 Total Bilirubin 1.5 H AST 37 ALT 37 Alkaline Phosphatase 49 Troponin I High Sens 5.6 Total Protein 7.2 Albumin 4.0 Globulin 3.2 Albumin/Globulin Ratio 1.3 Lipase 48 Urine Color Urine Clarity Urine pH Ur Specific [place] Urine Protein Urine Glucose (UA) Urine Ketones Urine Occult Blood Urine Nitrite Urine Bilirubin Urine Urobilinogen Ur Leukocyte Esterase Ur Microscopic Review Urine Culture Comments Urine Opiates Screen Ur Oxycodone Screen Urine Methadone Screen Ur Propoxyphene Screen Ur Barbiturates Screen Ur Tricyclics Screen Ur Phencyclidine Scrn Ur Amphetamine Screen U Methamphetamines Scrn U Benzodiazepines Scrn Urine Cocaine Screen U Cannabinoids Screen Ethyl Alcohol < 5.0 06/25/19 13:45 WBC RBC Hgb Hct MCV MCH MCHC RDW Plt Count MPV Neut # (Auto) Lymph # (Auto) Rains # (Auto) Eos # (Auto) Baso # (Auto) Absolute Nucleated RBC Nucleated RBC % Sodium Potassium Chloride Carbon Dioxide Anion Gap BUN Creatinine Estimated GFR (MDRD) Glucose Calcium Total Bilirubin AST ALT Alkaline Phosphatase Troponin I High Sens Total Protein Albumin Globulin Albumin/Globulin Ratio Lipase Urine Color YELLOW Urine Clarity CLEAR Urine pH 7.0 Ur Specific [place] <=1.005 Urine Protein NEGATIVE Urine Glucose (UA) NEGATIVE Urine Ketones NEGATIVE Urine Occult Blood NEGATIVE Urine Nitrite NEGATIVE Urine Bilirubin NEGATIVE Urine Urobilinogen 0.2 (NORMAL) Ur Leukocyte Esterase NEGATIVE Ur Microscopic Review NOT INDICATED Urine Culture Comments NOT INDICATED Urine Opiates Screen POSITIVE H Ur Oxycodone Screen NEGATIVE Urine Methadone Screen NEGATIVE Ur Propoxyphene Screen NEGATIVE Ur Barbiturates Screen NEGATIVE Ur Tricyclics Screen NEGATIVE Ur Phencyclidine Scrn NEGATIVE Ur Amphetamine Screen NEGATIVE U Methamphetamines Scrn NEGATIVE U Benzodiazepines Scrn NEGATIVE Urine Cocaine Screen NEGATIVE U Cannabinoids Screen NEGATIVE Ethyl Alcohol PD MEDICAL DECISION MAKING - ED course Complexity details: considered differential (Gastritis, PUD, enteritis, alcohol use, gastric ulcer, electrolyte abnormality) ED course: On arrival patient is nontoxic-appearing. She has some mild epigastric tenderness. Labs are drawn, and are notable for hypokalemia, and stigmata of chronic liver disease including thrombocytopenia and mildly elevated bilirubin. Patient was given a GI cocktail, famotidine, Zofran, and on repeat evaluation she is feeling improved. She was also given lactated Ringer's, oral potassium, and IV potassium for repletion. She is tolerating p.o. without issue. She states that she has not had much vomiting, just discomfort when she swallows because of the burning in her stomach. I do not see any signs of acute abdominal pathology, she has a benign abdomen. Normal rhythm and heart rate on the monitor. No weakness, muscle aches. I discussed her findings, and reviewing her labs she has been similarly hypokalemic in the past. She is tolerating PO and has been able to replete orally here without issue. After discussion with the patient on treatment options, she feels comfortable with treatment at home, we will start her on omeprazole, sucralfate for gastritis/potential ulcer, have a high suspicion for alcoholic gastritis. I discussed cessation of alcohol, I also discussed with her that she should take potassium supplements, and/or eat potassium rich foods, stop drinking alcohol, and follow-up for repeat lab draw with her PCP in the next week. I also discussed return precautions including any vomiting, weakness, worsening abdominal pain, inability to tolerate PO, or any other concerning symptoms. Departure - Departure Disposition: 01 Home, Self Care Clinical Impression: Hypokalemia Gastritis Qualifiers: Gastritis type: alcoholic Chronicity: acute Gastritis bleeding: presence of bleeding unspecified Qualified Code(s): K29.20 - Alcoholic gastritis without bleeding Condition: Good Instructions: ED PUD Vs Gastritis Follow-Up: Your,PCP [Other] (For follow up on liver dysfunction, acohol use, epigastric pain, and low potassium) Prescriptions: Omeprazole 40 mg PO DAILY 14 Days #30 capsule. Ondansetron Odt [Zofran] 4 mg TL Q6H PRN #10 tablet PRN Reason: Nausea / Vomiting Ranitidine HCl [Acid Control] 150 mg PO BID 14 Days #28 tablet Sucralfate 1 gm PO BID #28 tablet Comments: You were seen today for discomfort in your stomach, this appears to be gastritis or inflammation of the stomach and esophagus. Please take the acid blocking medications as prescribed, and avoid drinking alcohol as this is very irritating to the stomach lining. You also had low potassium, please make sure that you are eating potassium rich foods such as spinach, yams, avocados, bananas. Get your potassium and your liver function retested with your primary care provider, as you do some signs of liver dysfunction, which is likely due to alcohol use. I think if you continue drinking you are likely to cause your body serious, life- threatening harm. If you are having worsening abdominal pain, inability to eat or drink, or persistent vomiting, or other worsening symptoms, return to the emergency department. Discharge Date/Time: 06/25/19 15:10
[2019-06-25 12:06] LABS: ALBUMIN/GLOBULIN RATIO 1.3 (1.0-2.2); ALKALINE PHOSPHATASE 49 IU/L (42-121); ALT ALANINE AMINOTRANSFERASE 37 IU/L (10-60); AST ASPARTATE AMINOTRANSFERASE 37 IU/L (10-42); BILIRUBIN,TOTAL 1.5 mg/dL (0.2-1.0); BUN - BLOOD UREA NITROGEN 28 mg/dL (6-20); CALCIUM 8.6 mg/dL (8.5-10.3); CARBON DIOXIDE - CO2 30 mmol/L (21-32); CHLORIDE 89 mmol/L (101-111); CREATININE 0.7 mg/dL (0.4-1.0); GFR - MDRD 87 (>89); GLUCOSE 114 mg/dL (70-100); LIPASE 48 U/L (22-51); SODIUM 134 mmol/L (135-145); TOTAL PROTEIN 7.2 g/dL (6.7-8.2)
[2019-06-25] MEDS ORDERED: ONDANSETRON 4 MG/2 ML VIAL IVP STA (12:10)
[2019-06-25] MEDS ORDERED: LACTATED RINGERS 1,000 ML IV STA (12:10)
[2019-06-25] MEDS ORDERED: MAG HYDROX/AL HYDROX/SIMETH 30 ML UDC PO STA (12:11)
[2019-06-25] MEDS ORDERED: FAMOTIDINE 20 MG/2 ML VIAL IVP STA (12:11)
[2019-06-25] MEDS ORDERED: POTASSIUM CHLOR 20 MEQ/100 ML 20 MEQ/100 ML BAG IV ONE (12:11)
[2019-06-25] MEDS ORDERED: LORazepam 1 MG TABLET PO STA (12:14)
[2019-06-25] MEDS ORDERED: POTASSIUM CHLOR 10 MEQ/100 ML 10 MEQ/100 ML BAG IV STA ×2 (12:15)
[2019-06-25 13:49] LABS: MUDS CUTOFF CONCENTRATIONS CUTOFF CONC BELOW:
[2019-06-25 13:50] LABS: BILIRUBIN,URINE NEGATIVE (NEGATIVE); GLUCOSE, URINE (UA) NEGATIVE (NEGATIVE); KETONES,URINE (UA) NEGATIVE (NEGATIVE); LEUKOCYTE ESTERASE, URINE NEGATIVE (NEGATIVE); NITRITE,URINE NEGATIVE (NEGATIVE); OCCULT BLOOD,URINE NEGATIVE (NEGATIVE); PROTEIN,URINE NEGATIVE (NEGATIVE); UROBILINOGEN,URINE 0.2 (NORMAL) E.U./dL (NORMAL)
[2019-06-25 13:51] LABS: CLARITY,URINE CLEAR (CLEAR)
[2019-06-25] MEDS ORDERED: POTASSIUM CHLORIDE 20 MEQ TABLET PO STA (13:51)
[2019-06-25 14:01] LABS: AMPHETAMINE SCREEN,URINE NEGATIVE (NEGATIVE); BENZODIAZEPINES SCREEN, URINE NEGATIVE (NEGATIVE); COCAINE SCREEN URINE NEGATIVE (NEGATIVE); METHADONE SCREEN, URINE NEGATIVE (NEGATIVE); METHAMPHETAMINES SCREEN, URINE NEGATIVE (NEGATIVE); OPIATE SCREEN, URINE POSITIVE (NEGATIVE); OXYCODONE SCREEN, URINE NEGATIVE (NEGATIVE); PROPOXYPHENE SCREEN, URINE NEGATIVE (NEGATIVE); TRICYCLIC ANTIDEPRESSANT,URINE NEGATIVE (NEGATIVE)
[2019-06-25 15:04] VITALS: BP 141/86
== END 2019-06-25 15:10 | disposition home or self-care (01) ==
LOC: EDUNIT# → ED 11:13
DX: E87.6 Hypokalemia (principal); K29.20 Alcoholic gastritis without bleeding; I10 Essential (primary) hypertension; F17.200 Nicotine dependence, unspecified, uncomplicated
CPT/HCPCS: 36415; 80053; 81003; 83690; 84484; 85025; 96361; 96365; 96366; 96375; 99283; 99284; A9270; J7120; J8499; 80306; 80320; 81001; 87086

== ENCOUNTER 2021-09-11 11:16 | Emergency (ER) | payer MEDICARE ==
[2021-09-11 12:04] LABS: BILIRUBIN,URINE NEGATIVE (NEGATIVE); GLUCOSE, URINE (UA) NEGATIVE (NEGATIVE); KETONES,URINE (UA) TRACE mg/dL (NEGATIVE); LEUKOCYTE ESTERASE, URINE NEGATIVE (NEGATIVE); NITRITE,URINE NEGATIVE (NEGATIVE); OCCULT BLOOD,URINE MODERATE (NEGATIVE); PROTEIN,URINE NEGATIVE (NEGATIVE); UROBILINOGEN,URINE 0.2 (NORMAL) E.U./dL (NORMAL)
[2021-09-11 12:05] LABS: CLARITY,URINE CLEAR (CLEAR)
--- NOTE | 2021-09-11 12:17 | ED Physician Documentation ---
PD HPI ABD PAIN - Stated complaint Stated Complaint: ABD PX - Chief complaint Chief Complaint: Abd Pain - History obtained from History obtained from: Patient - Additional information Additional information: 60-year-old woman with history of hysterectomy, mastectomy for right-sided breast cancer presents with sudden onset left-sided abdominal pain starting 6 days ago. It was terrible on that day but got better but did not go away. Subsequently she was seen in the clinic 2 days later and started on amoxicillin for presumptive diverticulitis but told to come to the emergency department if she was not better in a few days. She was having a normal bowel movement when it started, but the next 2 days was constipated but after starting amoxicillin has had diarrhea. She had a single episode of hematuria on the day of onset. She has had dark diarrhea for the last few days. She has a history of renal colic and wonders if that might of been similar. She has never had a colonoscopy. Review of Systems Ten Systems: 10 systems reviewed and negative Constitutional: reports: Fever, Chills GI: reports: Abdominal Pain, Diarrhea. denies: Nausea, Vomiting : reports: Hematuria. denies: Dysuria, Frequency PD PAST MEDICAL HISTORY - Past Medical History Past Medical History: Yes Cardiovascular: Hypertension Respiratory: Asthma Neuro: None Endocrine/Autoimmune: None GI: None PBX MECHANIC: Breast cancer : None HEENT: None Psych: None Musculoskeletal: None Derm: None - Past Surgical History Past Surgical History: Yes /PBX MECHANIC: Hysterectomy, Mastectomy - Present Medications Home Medications: Ambulatory Orders Medication Instructions Recorded Confirmed Levetiracetam [Keppra] 500 mg PO BID #30 tablet 01/07/18 Multivitamin [Theragran] 1 tab PO DAILY 01/07/18 01/07/18 Omeprazole 40 mg PO DAILY 14 Days #30 06/25/19 capsule. Ondansetron Odt [Zofran] 4 mg TL Q6H PRN #10 tablet 06/25/19 Sucralfate 1 gm PO BID #28 tablet 06/25/19 raNITIdine HCl [Acid Control] 150 mg PO BID 14 Days #28 tablet 06/25/19 HYDROcod/ACETAM 5/325 [[place] 5/325] 1 - 2 tab PO Q6H PRN #20 tablet 09/11/21 Tamsulosin [Flomax] 0.4 mg PO DAILY #14 cap 09/11/21 - Allergies Allergies/Adverse Reactions: Allergies Allergy/AdvReac Type Severity Reaction Status Date / Time cephalexin monohydrate * Allergy Rash Verified 09/11/21 11:37 [From Keflex] - Social History Does the pt smoke?: Yes Smoking Status: Current every day smoker Does the pt drink ETOH?: Yes Does the pt have substance abuse?: No - Immunizations Immunizations are current?: Yes - POLST Patient has POLST: No POLST Status: Full Code PD ED PE NORMAL - Vitals Vital signs reviewed: Yes - General General: Alert and oriented X 3, No acute distress - HEENT HEENT: PERRL, EOMI - Neck Neck: Supple, no meningeal sign, No bony TTP - Cardiac Cardiac: RRR, No murmur - Respiratory Respiratory: No respiratory distress, Clear bilaterally - Abdomen Abdomen: Normal bowel sounds, Soft, Other (Soft distended active abdomen with lower abdominal exploratory laparotomy scar from prior hysterectomy. Mild lower abdominal tenderness.) - Back Back: No CVA TTP, No spinal TTP - Derm Derm: Normal color, Warm and dry - Extremities Extremities: No edema, No calf tenderness / cord - Neuro Neuro: Alert and oriented X 3, Normal speech Results - Vitals Vitals: Vital Signs - 24 hr 09/11/21 09/11/21 09/11/21 11:32 11:47 15:22 Temperature 37.0 C Heart Rate 98 87 87 Respiratory 18 18 14 Rate Blood Pressure 156/99 H 151/82 H 151/88 H O2 Saturation 97 97 99 Oxygen O2 Source Room air - Labs Labs: Laboratory Tests 09/11/21 09/11/21 09/11/21 11:48 12:03 12:03 WBC 9.7 RBC 3.31 L Hgb 11.0 L Hct 32.6 L MCV 98.5 MCH 33.2 H MCHC 33.7 RDW 14.0 Plt Count 389 MPV 9.0 Neut # (Auto) 6.5 Lymph # (Auto) 2.0 [place] # (Auto) 1.1 H Eos # (Auto) 0.2 Baso # (Auto) 0.0 Absolute Nucleated RBC 0.00 Nucleated RBC % 0.0 Sodium 137 Potassium 3.5 Chloride 103 Carbon Dioxide 21 Anion Gap 13.0 BUN 14 Creatinine 1.2 H Estimated GFR (MDRD) 46 L Glucose 115 H Calcium 8.8 Total Bilirubin 1.1 H AST 19 ALT 17 Alkaline Phosphatase 54 Total Protein 7.1 Albumin 3.4 Globulin 3.7 Albumin/Globulin Ratio 0.9 L Lipase 25 Urine Color YELLOW Urine Clarity CLEAR Urine pH 6.0 Ur Specific [place] 1.025 Urine Protein NEGATIVE Urine Glucose (UA) NEGATIVE Urine Ketones TRACE Urine Occult Blood MODERATE H Urine Nitrite NEGATIVE Urine Bilirubin NEGATIVE Urine Urobilinogen 0.2 (NORMAL) Ur Leukocyte Esterase NEGATIVE Urine RBC 11-25 H Urine WBC 4-5 Ur Squamous Epith Cells MANY Squamous H Urine Bacteria Rare Ur Microscopic Review INDICATED Urine Culture Comments NOT INDICATED PD MEDICAL DECISION MAKING - ED course ED course: 60-year-old woman with left-sided obstructing stone found on CT. Renal function is good and no evidence of pyelonephritis. Discussed with her that she will need to follow-up closely with a urologist, given the size likely will need intervention. I am prescribing a short course of short-acting opioid pain medication for this patient. I have reviewed the patients PCB DESIGNER and no concerning findings were noted. I have discussed that the opioids are for short term therapy only, and will not be refilled from the ED. Departure - Departure Disposition: 01 Home, Self Care Clinical Impression: Renal colic Condition: Good Record reviewed to determine appropriate education?: Yes Instructions: ED Stone Renal W Colic Prescriptions: Tamsulosin [Flomax] 0.4 mg PO DAILY #14 cap HYDROcod/ACETAM 5/325 [[place] 5/325] 1 - 2 tab PO Q6H PRN #20 tablet PRN Reason: Pain Comments: I sent your prescriptions electronically to [facility] in [place]. Stone measures 1 cm round and is blocking that left kidney so you will likely eventually need urologic intervention. You should follow-up with a urologist, sounds like the closest for you will be [facility]. The phone number is [phone]. Call for an appointment. When you go to that appointment take the copy of the CAT scan on CD with you. Return for new or worsening symptoms. I am prescribing a short course of narcotic pain medication for you. These are potentially dangerous and addictive medications that should be used carefully. These medications may constipate you. Take an clcs-lqu-sftsadx stool softener (docusate) twice daily with plenty of water while taking these medications. If you go 24 hours without a bowel movement, take [id number] miralax, per package instructions. Do not drink or drive while taking these medications. If you received narcotic or sedating medications while in the emergency departm ent, do not drive for 24 hours. Store this medication in a safe, secure place and out of reach of children. It is a violation of federal law to give or sell this medication to another person or to use in a manner other than prescribed. The ED will not refill narcotic prescriptions, including prescriptions lost or stolen. To dispose of unwanted medications: 1. [facility] at [address] in [place] has a medication drop box. They accept prescription medications (in pill form) Friday through Friday 9:00 a.m. to 5:00 p.m. 2. [facility] accepts prescription medications (in pill form only) for disposal year round. Call for more information. 3. Contact the [facility] for the next [employer] sponsored prescription drug collection event. , [phone], or [phone]; Note that many narcotic pain relievers also contain Tylenol/acetaminophen. Please ensure that your total dose of acetaminophen from all sources does not exceed 3 g (3000 mg) per day. Discharge Date/Time: 09/11/21 15:22
[2021-09-11 12:27] LABS: BASOPHILS % (AUTO) 0.4 %; EOSINOPHILS # (AUTO) 0.2 10^3/uL (0.0-0.7); EOSINOPHILS % (AUTO) 1.6 %; HCT - HEMATOCRIT 32.6 % (37.0-47.0); LYMPHOCYTES % (AUTO) 20.3 %; MEAN CORPUSCULAR HEMOGLOBIN 33.2 pg (27.0-31.0); MEAN CORPUSCULAR HGB CONC 33.7 g/dL (32.0-36.0); MEAN CORPUSCULAR VOLUME 98.5 fL (81.0-99.0); MONOCYTES # (AUTO) 1.1 10^3/uL (0.0-1.0); MONOCYTES % (AUTO) 10.8 %; NEUTROPHILS # (AUTO) 6.5 10^3/uL (1.5-6.6); NEUTROPHILS % (AUTO) 66.4 %; PLT - PLATELET COUNT 389 10^3/uL (130-450); RED BLOOD COUNT 3.31 10^6/uL (4.20-5.40); WHITE BLOOD COUNT 9.7 x10^3/uL (4.8-10.8)
[2021-09-11 12:38] LABS: BACTERIA,URINE Rare /HPF (None Seen); SQUAMOUS EPITHELIAL CELL,UR MANY Squamous (<= Few)
[2021-09-11] MEDS ORDERED: iohexoL-300 100 ML VIAL ONE (12:43)
[2021-09-11 12:45] LABS: ALBUMIN 3.4 g/dL (3.2-5.5); ALBUMIN/GLOBULIN RATIO 0.9 (1.0-2.2); BILIRUBIN,TOTAL 1.1 mg/dL (0.2-1.0); CALCIUM 8.8 mg/dL (8.5-10.3); CREATININE 1.2 mg/dL (0.4-1.0); POTASSIUM 3.5 mmol/L (3.5-5.0); TOTAL PROTEIN 7.1 g/dL (6.7-8.2)
--- NOTE | 2021-09-11 15:00 | CT Report ---
PROCEDURE: Abdomen/Pelvis W INDICATIONS: IV only, L abd pain CONTRAST: IV CONTRAST: Isovue 300 ml: 100 PO CONTRAST: *NO PO CONTRAST TECHNIQUE: After the administration of intravenous contrast, 5 mm thick sections acquired from the diaphragms to the symphysis. 5 mm thick coronal and sagittal reformats were acquired. For radiation dose reducti on, the following was used: automated exposure control, adjustment of mA and/or kV according to madhav ent size. COMPARISON: None. FINDINGS: Image quality: Excellent. ABDOMEN: Lung bases: Lung bases are clear. Heart size is normal. Small hiatal hernia suspected. Solid organs: Liver and spleen are normal in size. Hepatic steatosis. Gallbladder is unremarkable. Biliary system is non dilated. Pancreas enhances normally. No adrenal nodules. There is an obstructing calculus in the proximal left ureter measuring 1 cm, (3/43). There is decreas ed enhancement of the left kidney compared to the right. There is moderate left hydronephrosis. There is a small cyst in the left kidney superior pole. Additionally, there is a nonobstructing calculus i n the right kidney measuring 1 cm. Peritoneum and bowel: Bowel loops demonstrate normal wall thickness and caliber. The appendix is no t dilated. No free fluid or air. Nodes and vessels: No retroperitoneal or mesenteric adenopathy by size criteria. Aorta and inferior vena cava are normal in size. Moderate calcified plaque. Miscellaneous: No ventral hernias. PELVIS: Genitourinary: Bladder wall thickness is normal. No bladder stones. Uterus is absent. Miscellaneous: No inguinal hernias or adenopathy. Bones: No suspicious bony lesions. Severe DDD at L4-L5. No vertebral body compression fractures. IMPRESSION: 1. Obstructing calculus at the proximal left ureter measuring 1 cm. Moderate left hydronephrosis. 2. Additional nonobstructing right kidney stone measuring 1 cm. 3. Hepatic steatosis. Results were communicated to Dr. Remy at 09/11/2021 2:58 PM PST. Reviewed by: Goldy Mendoza MD on 09/11/2021 2:58 PM PST Approved by: Goldy Mendoza MD on 09/11/2021 2:58 PM PST Station ID: [id number]
[2021-09-11 15:23] VITALS: BP 151/88
[2021-09-11] MEDS ORDERED: iohexoL-300 100 ML VIAL IVP ONE (16:08)
== END 2021-09-11 15:22 | disposition home or self-care (01) ==
LOC: ED 11:16
DX: N20.0 Calculus of kidney (principal); I10 Essential (primary) hypertension; F17.200 Nicotine dependence, unspecified, uncomplicated
CPT/HCPCS: 36415; 74177; 80053; 81001; 83690; 85025; 99284; Q9967; 81003; 87086